=== PATIENT | female | born 1985 | race Caucasian/White ===

== ENCOUNTER 2020-06-18 08:29 | Inpatient (IN) | payer OTHER ==
[2020-06-19 06:24] LABS: HCT 32.8 % (37.0-47.0); HGB 10.4 g/dl (12.5-16.0); MCH 27.1 pg (25.0-31.0); MCHC 31.7 g/dL (32.0-36.0); MCV 85.4 fL (78.0-100.0); MPV 10.9 fL (6.0-9.5); RBC 3.84 M/uL (4.20-5.40); RDW 14.8 % (11.5-14.0)
== END 2020-06-20 13:55 | disposition home or self-care (01) | DRG 806 ==
LOC: FOB 08:29
PROVIDERS: ADMIT Obstetrics & Gynecology
PROC: 10E0XZZ Delivery of Products of Conception, External Approach (ICD-10-PCS; principal; 2020-06-18)
PROC: 0KQM0ZZ Repair Perineum Muscle, Open Approach (ICD-10-PCS; 2020-06-18)
DX: O99.214 Obesity complicating childbirth (principal); D62 Acute posthemorrhagic anemia; Z37.0 Single live birth; E66.9 Obesity, unspecified; Z3A.37 37 weeks gestation of pregnancy; O10.913 Unspecified pre-existing hypertension complicating pregnancy, third trimester; O66.0 Obstructed labor due to shoulder dystocia; O69.81X0 Labor and delivery complicated by cord around neck, without compression, not applicable or unspecified; O70.1 Second degree perineal laceration during delivery; O90.81 Anemia of the puerperium
CPT/HCPCS: 36415; 81001; J7120; U0002